=== PATIENT | female | born 1985 | race Caucasian/White ===

== ENCOUNTER 2016-11-03 10:41 | Observation (INO) | payer OTHER ==
[~2016-11-03] VITALS: Ht 160 cm; Wt 62.2 kg
[~2016-11-03 10:41] MED LIST: ACID REDUCER10 MG PO; ACYCLOVIR400 MG PO; ACYCLOVIR800 MG PO; ADDERALL XR 3030 MG PO; ADDERALL20 MG PO; ADDERALL30 MG PO; AZITHROMYCIN500 M1 PO; Acyclovir PO; CITALOPRAM HBR20 MG PO; CLINDAMYCIN HC300 MG PO; ENDOCET 5-3251 EACH PO; IBUPROFEN800 MG PO; JOLIVETTE0.35 MG PO; METRONIDAZOLE500 MG PO; MOTRIN600 MG PO; MOTRIN800 MG PO; Motrin PO; NATALCARE RX1 TABLET PO; NORCO 5/3251 TABLET PO; PERCOCET 5/31 TABLET PO; PREFERA-OB P1 TABLET PO; PRENATAL TABLE1 EAC3 PO; Percocet 5/325,Endoc PO; Procardia PO; VALIUM10 MG PO; VALIUM5 MG PO; XANAX1 MG PO; ZANTAC PO; ZITHROMAX Z-PA250 MG PO; ZOFRAN4 MG PO; Zantac PO; Zantac,Taladine PO
[2016-11-03 11:47] LABS: EOSINOPHIL (%) 0.9 % (0-5); EOSINOPHIL COUNT 0.1 K/uL (0-0.3); HEMATOCRIT 30.4 % (36.0-46.0); IMMATURE GRANULOCYTE (%) 0.3 % (0.0-0.7); INSTRUMENT ABS NEUTROPHIL CT 6.7 K/uL; LYMPHOCYTE COUNT 1.4 K/uL (1.0-2.8); MCH 29.9 PG (29.0-34.0); MCHC 34.5 G/DL (30.0-36.0); MCV 86.6 FL (83-99); MEAN PLAT.VOLUME 10.7 uM^3 (9.5-12.4); MONOCYTE (%) 5.2 % (3-12); MONOCYTE COUNT 0.5 K/uL (0-0.8); NEUTROPHIL (%) 77.4 % (45-76); NEUTROPHIL COUNT 6.7 K/uL (1.8-6.4); PLATELET COUNT 221 K/uL (156-360); RBC DIS.WIDTH-CV 12.4 % (11.8-14.6); RBC DIS.WIDTH-SD 38.9 % (39-53); RED BLOOD COUNT 3.51 M/uL (3.80-5.20); WHITE BLOOD COUNT 8.6 K/uL (4.1-10.2)
[2016-11-03 11:54] LABS: CHLORIDE 104 mEq/L (99-109); POTASSIUM 3.9 mEq/L (3.7-5.4); SODIUM 135 mEq/L (136-147)
[2016-11-03 11:56] LABS: GLUCOSE 94 mg/dL (70-99); INTER. NORMALIZED RATIO 1.1; PROTHROMBIN TIME 11.2 (9.2-11.2); PTT 22.6 (25-32)
[2016-11-03 11:57] LABS: ANION GAP 8 MEQ/L (2-14)
[2016-11-03 11:58] LABS: TOTAL BILIRUBIN 0.5 mg/dL (0.0-1.0)
[2016-11-03 12:00] LABS: ALKALINE PHOSPHATASE 34 IU/L (3-129); GFR ESTIMATE (CALCULATED) > 59 mL/min/
[2016-11-03 12:01] LABS: UREA NITROGEN (BUN) 7 mg/dL (9-23)
[2016-11-03 12:27] LABS: QUANTITATIVE HCG 29510.2 MIU/ML
[2016-11-03 14:26] LABS: HEMATOCRIT 25.3 % (36.0-46.0); MCV 87.2 FL (83-99)
[2016-11-03] MEDS ORDERED: CIPROFLOXACIN250 MG PO (15:08)
[2016-11-03] MEDS ORDERED: ADDERALL XR 3030 MG PO (15:10)
[2016-11-03] MEDS ORDERED: XANAX1 MG PO (15:10)
[2016-11-03] MEDS ORDERED: ACYCLOVIR800 MG PO (15:11)
[2016-11-03 17:57] LABS: EOSINOPHIL (%) 1.4 % (0-5); EOSINOPHIL COUNT 0.1 K/uL (0-0.3); IMMATURE GRANULOCYTE (%) 0.4 % (0.0-0.7); INSTRUMENT ABS NEUTROPHIL CT 2.8 K/uL; LYMPHOCYTE COUNT 1.7 K/uL (1.0-2.8); MCHC 33.9 G/DL (30.0-36.0); MCV 88.5 FL (83-99); MEAN PLAT.VOLUME 9.9 uM^3 (9.5-12.4); MONOCYTE (%) 7.6 % (3-12); MONOCYTE COUNT 0.4 K/uL (0-0.8); NEUTROPHIL (%) 56.2 % (45-76); NEUTROPHIL COUNT 2.8 K/uL (1.8-6.4); PLATELET COUNT 159 K/uL (156-360); RBC DIS.WIDTH-CV 12.6 % (11.8-14.6); RBC DIS.WIDTH-SD 40.2 % (39-53)
[2016-11-03 17:58] LABS: WHITE BLOOD COUNT 4.9 K/uL (4.1-10.2)
[2016-11-03 18:00] VITALS: BP 85/51
[2016-11-03 18:04] LABS: CHLORIDE 112 mEq/L (99-109); POTASSIUM 3.7 mEq/L (3.7-5.4); SODIUM 139 mEq/L (136-147)
[2016-11-03 18:06] LABS: GLUCOSE 107 mg/dL (70-99)
[2016-11-03 18:07] LABS: ANION GAP 4 MEQ/L (2-14)
[2016-11-03 18:09] LABS: GFR ESTIMATE (CALCULATED) > 59 mL/min/
[2016-11-03 18:10] LABS: UREA NITROGEN (BUN) 7 mg/dL (9-23)
[2016-11-03 18:23] VITALS: BP 85/15
[2016-11-03 20:20] VITALS: BP 102/58
[2016-11-03 20:54] LABS: HEMATOCRIT 23.1 % (36.0-46.0); MCV 89.9 FL (83-99)
[2016-11-04 00:53] VITALS: BP 98/51
[2016-11-04 03:02] VITALS: BP 98/47
[2016-11-04 07:32] LABS: HEMATOCRIT 22.1 % (36.0-46.0); MCV 89.8 FL (83-99)
[2016-11-04 08:02] VITALS: BP 95/52
[2016-11-04] MEDS ORDERED: MOTRIN600 MG PO (08:47)
[2016-11-04] MEDS ORDERED: ALPRAZOLAM0.5 MG PO (08:47)
[2016-11-04 11:26] VITALS: BP 101/62
== END 2016-11-04 11:46 | disposition home or self-care (01) ==
LOC: EME → EDBD 10:41 → EDOF 15:09 → 2EAST 15:09 → EDOF 15:09 → 2EAST 18:09
PROVIDERS: Emergency Medicine; Obstetrics & Gynecology
DX: O04.6 Delayed or excessive hemorrhage following (induced) termination of pregnancy (principal); D62 Acute posthemorrhagic anemia; I95.9 Hypotension, unspecified; Z3A.08 8 weeks gestation of pregnancy
CPT/HCPCS: 76856; 80048 91; 80053; 81003; 84702; 85014; 85018; 85025; 85025 91; 85610; 85730; 86850; 86900; 86901; 86920; 99281; 99285; G0378; J3010; J7030; J7120

== ENCOUNTER 2017-03-04 21:21 | Emergency (ER) | payer OTHER ==
[~2017-03-04] VITALS: Ht 160 cm; Wt 57.6 kg
[~2017-03-04 21:21] MED LIST changes: +ALPRAZOLAM0.5 MG PO; +CIPROFLOXACIN250 MG PO
[2017-03-04] MEDS ORDERED: BACTROBAN CREAM15 GM TP (22:29)
[2017-03-04] MEDS ORDERED: CLEOCIN300 MG PO (22:29)
[2017-03-04 22:52] VITALS: BP 135/77
== END 2017-03-04 22:52 | disposition home or self-care (01) ==
LOC: EME 21:21
DX: L02.415 Cutaneous abscess of right lower limb (principal); L30.9 Dermatitis, unspecified; F17.200 Nicotine dependence, unspecified, uncomplicated
CPT/HCPCS: 99281; 99283

== ENCOUNTER 2017-05-13 09:12 | Emergency (ER) | payer OTHER ==
[~2017-05-13] VITALS: Ht 160 cm; Wt 59.5 kg
[~2017-05-13 09:12] MED LIST changes: +BACTROBAN CREAM15 GM TP; +CLEOCIN300 MG PO
[2017-05-13 09:42] LABS: HEMATOCRIT 33.6 % (36.0-46.0); MCH 30.6 PG (29.0-34.0); MCHC 33.9 G/DL (30.0-36.0); MCV 90.1 FL (83-99); MEAN PLAT.VOLUME 10.7 uM^3 (9.5-12.4); PLATELET COUNT 194 K/uL (156-360); RBC DIS.WIDTH-CV 13.6 % (11.8-14.6); RBC DIS.WIDTH-SD 44.9 % (39-53); RED BLOOD COUNT 3.73 M/uL (3.80-5.20); WHITE BLOOD COUNT 6.4 K/uL (4.1-10.2)
[2017-05-13 09:53] LABS: CHLORIDE 105 mEq/L (99-109); POTASSIUM 3.8 mEq/L (3.7-5.4); SODIUM 136 mEq/L (136-147)
[2017-05-13 09:54] LABS: GLUCOSE 78 mg/dL (70-99)
[2017-05-13 09:56] LABS: ANION GAP 4 MEQ/L (2-14)
[2017-05-13 09:58] LABS: GFR ESTIMATE (CALCULATED) > 59 mL/min/
[2017-05-13 09:59] LABS: UREA NITROGEN (BUN) 5 mg/dL (9-23)
[2017-05-13 10:06] LABS: ADD MIUA? NO; BILIRUBIN NEGATIVE; BLOOD NEGATIVE; COLOR YELLOW ((YELLOW)); GLUCOSE (STRIP) NEGATIVE; KETONES NEGATIVE; LEUKOCYTES NEGATIVE; NITRITE NEGATIVE; PROTEIN (STRIP) NEGATIVE; SPECIFIC GRAVITY 1.006 (1.000-1.030); UROBILINOGEN 0.2 MG/DL (0.2-1.0)
[2017-05-13] MEDS ORDERED: TYLENOL WITH C1 EACH PO (10:57)
[2017-05-13 12:47] VITALS: BP 102/54
== END 2017-05-13 12:48 | disposition home or self-care (01) ==
LOC: EME 09:12
DX: O26.892 Other specified pregnancy related conditions, second trimester (principal); M54.6 Pain in thoracic spine; M54.5 Low back pain; R51 Headache; M54.2 Cervicalgia; Z72.0 Tobacco use; Z3A.15 15 weeks gestation of pregnancy
CPT/HCPCS: 76805; 80048; 81003; 85027; 99281; 99283

== ENCOUNTER 2017-07-17 19:37 | Outpatient (CLI) | payer OTHER ==
[~2017-07-17] VITALS: Ht 160 cm; Wt 60.1 kg
[~2017-07-17 19:37] MED LIST changes: +TYLENOL WITH C1 EACH PO
[2017-07-17] MEDS ORDERED: DIAZEPAM10 MG PO (21:41)
[2017-07-17 22:34] LABS: ADD MIUA? YES; BILIRUBIN NEGATIVE; BLOOD NEGATIVE; COLOR AMBER ((YELLOW)); GLUCOSE (STRIP) NEGATIVE; KETONES 5; LEUKOCYTES LARGE; NITRITE NEGATIVE; PROTEIN (STRIP) 30
[2017-07-17 22:41] LABS: EOSINOPHIL (%) 1.9 % (0-5); EOSINOPHIL COUNT 0.2 K/uL (0-0.3); HEMATOCRIT 30.9 % (36.0-46.0); IMMATURE GRANULOCYTE (%) 0.4 % (0.0-0.7); INSTRUMENT ABS NEUTROPHIL CT 5.1 K/uL; LYMPHOCYTE COUNT 2.2 K/uL (1.0-2.8); MCH 31.5 PG (29.0-34.0); MCV 90.1 FL (83-99); MEAN PLAT.VOLUME 10.8 uM^3 (9.5-12.4); MONOCYTE (%) 6.9 % (3-12); MONOCYTE COUNT 0.6 K/uL (0-0.8); NEUTROPHIL (%) 63.7 % (45-76); NEUTROPHIL COUNT 5.1 K/uL (1.8-6.4); PLATELET COUNT 165 K/uL (156-360); RBC DIS.WIDTH-CV 12.9 % (11.8-14.6); RBC DIS.WIDTH-SD 42.5 % (39-53); RED BLOOD COUNT 3.43 M/uL (3.80-5.20)
[2017-07-17 22:51] LABS: CHLORIDE 106 mEq/L (99-109); POTASSIUM 3.9 mEq/L (3.7-5.4); SODIUM 138 mEq/L (136-147)
[2017-07-17 22:53] LABS: GLUCOSE 99 mg/dL (70-99)
[2017-07-17 22:54] LABS: ANION GAP 8 MEQ/L (2-14)
[2017-07-17 22:57] LABS: GFR ESTIMATE (CALCULATED) > 59 mL/min/; UREA NITROGEN (BUN) 9 mg/dL (9-23)
[2017-07-17 23:06] LABS: RED BLOOD CELLS 0-5 /HPF (0-5)
[2017-07-17 23:07] LABS: BACTERIA 3+ /HPF; EPITHELIAL CELLS 2+ /HPF; MUCUS 2+ /LPF; UCUL ADDED? YES; WHITE BLOOD CELLS 20-30 /HPF (0-5)
[2017-07-18 00:50] VITALS: BP 108/59
[2017-07-18] MEDS ORDERED: ZANTAC150 MG PO (01:14)
[2017-07-18 02:10] VITALS: BP 129/67
[2017-07-18 03:33] VITALS: BP 95/50
[2017-07-18 04:15] VITALS: BP 110/55
[2017-07-18 06:46] LABS: AMPHETAMINE NEGATIVE (500 ng/mL); BARBITURATES NEGATIVE (200 ng/mL); BENZODIAZEPINES PRESUMPTIVE POSITIVE (150 ng/mL); COCAINE NEGATIVE (150 ng/mL); INTERNAL CONTROLS VALID? YES; METHADONE NEGATIVE (200 ng/mL); METHAMPHETAMINE NEGATIVE (500 ng/mL); OPIATES (MORPHINE) NEGATIVE (100 ng/mL); OXYCODONE PRESUMPTIVE POSITIVE (100 ng/mL); PHENCYCLIDINE NEGATIVE (25 ng/mL); PROPOXYPHENE NEGATIVE (300 ng/mL); THC CANNABINOIDS NEGATIVE (50 ng/mL); TRICYCLIC ANTIDEPRESSANTS NEGATIVE (300 ng/mL)
[2017-07-18 06:47] LABS: ADD MEDTOX COMMENT Y
[2017-07-18 07:27] LABS: BENZODIAZEPINES QUANT VALUE 0 NG/ML; BENZODIAZEPINES, URINE SCREEN Negative (200 ng/mL)
[2017-07-18 08:15] VITALS: BP 101/51
[2017-07-18] MEDS ORDERED: PNV PRENATAL P1 EACH PO (11:31)
[2017-07-18] MEDS ORDERED: VITAMIN B-6100 MG PO (11:33)
[2017-07-18] MEDS ORDERED: ZOVIRAX400 MG PO (11:33)
[2017-07-18] MEDS ORDERED: PERCOCET 5/31 TABLET PO (13:47)
== END 2017-07-18 14:10 | disposition home or self-care (01) ==
LOC: LDRP-OP 19:37 → EME 19:37 → 2WEST 07-18 00:47
PROVIDERS: Midwife; Physician Assistant
DX: O9A.312 Physical abuse complicating pregnancy, second trimester (principal); S19.9XXA Unspecified injury of neck, initial encounter; R10.2 Pelvic and perineal pain; M54.5 Low back pain; Z3A.25 25 weeks gestation of pregnancy; Y07.03 Male partner, perpetrator of maltreatment and neglect; Y04.8XXA Assault by other bodily force, initial encounter
CPT/HCPCS: 59025; 70498; 76810; 80048; 81003; 84999; 85025; 86850; 86900; 86901; 87086; 99281; 99284; G0378; J7120

== ENCOUNTER 2017-08-16 03:44 | Emergency (ER) | payer OTHER ==
[~2017-08-16] VITALS: Ht 160 cm; Wt 65.1 kg
[~2017-08-16 03:44] MED LIST changes: +DIAZEPAM10 MG PO; +PNV PRENATAL P1 EACH PO; +VITAMIN B-6100 MG PO; +ZANTAC150 MG PO; +ZOVIRAX400 MG PO
[2017-08-16 04:36] LABS: APPEARANCE SL.HAZY ((CLEAR)); BILIRUBIN NEGATIVE; BLOOD NEGATIVE; COLOR YELLOW ((YELLOW)); GLUCOSE (STRIP) NEGATIVE; KETONES NEGATIVE; LEUKOCYTES LARGE; NITRITE NEGATIVE; PROTEIN (STRIP) NEGATIVE; SPECIFIC GRAVITY 1.008 (1.000-1.030); UROBILINOGEN 0.2 MG/DL (0.2-1.0)
[2017-08-16 04:40] LABS: BACTERIA RARE /HPF; EPITHELIAL CELLS 1+ /HPF; MUCUS 1+ /LPF; UCUL ADDED? YES; WHITE BLOOD CELLS TNTC /HPF (0-5)
[2017-08-16] MEDS ORDERED: MACROBID100 MG PO (04:48)
[2017-08-16] MEDS ORDERED: PYRIDIUM100 MG PO (04:48)
[2017-08-16 04:59] VITALS: BP 112/70
== END 2017-08-16 05:00 | disposition home or self-care (01) ==
LOC: EXP 03:44 → EME 03:44 → EXP 05:00
DX: O23.13 Infections of bladder in pregnancy, third trimester (principal); O99.333 Smoking (tobacco) complicating pregnancy, third trimester; O99.513 Diseases of the respiratory system complicating pregnancy, third trimester; R05 Cough
CPT/HCPCS: 81003; 87077; 87086; 87186; 99281; 99283

== ENCOUNTER 2017-09-20 11:12 | Outpatient (CLI) | payer OTHER ==
[~2017-09-20] VITALS: Ht 160 cm; Wt 67.7 kg
[~2017-09-20 11:12] MED LIST changes: +MACROBID100 MG PO; +PYRIDIUM100 MG PO
[2017-09-20 11:13] VITALS: BP 130/77
[2017-09-20 11:34] VITALS: BP 122/72
[2017-09-20 12:17] VITALS: BP 101/63
[2017-09-20 12:17] LABS: APPEARANCE CLEAR ((CLEAR)); BILIRUBIN NEGATIVE; BLOOD NEGATIVE; COLOR STRAW ((YELLOW)); GLUCOSE (STRIP) NEGATIVE; KETONES 5; LEUKOCYTES NEGATIVE; NITRITE NEGATIVE; PROTEIN (STRIP) NEGATIVE; SPECIFIC GRAVITY 1.003 (1.000-1.030); UCUL ADDED? NO; UROBILINOGEN 0.2 MG/DL (0.2-1.0)
[2017-09-20 12:36] VITALS: BP 105/67
[2017-09-20] MEDS ORDERED: VALIUM10 MG PO (12:40)
[2017-09-20 12:51] VITALS: BP 107/64
[2017-09-20 12:53] LABS: AMPHETAMINE NEGATIVE (500 ng/mL); BARBITURATES NEGATIVE (200 ng/mL); BENZODIAZEPINES NEGATIVE (150 ng/mL); BUPRENORPHINE NEGATIVE (10 ng/mL); COCAINE NEGATIVE (150 ng/mL); METHADONE NEGATIVE (200 ng/mL); METHAMPHETAMINE NEGATIVE (500 ng/mL); OPIATES (MORPHINE) NEGATIVE (100 ng/mL); OXYCODONE NEGATIVE (100 ng/mL); PHENCYCLIDINE NEGATIVE (25 ng/mL); PROPOXYPHENE NEGATIVE (300 ng/mL); THC CANNABINOIDS NEGATIVE (50 ng/mL); TRICYCLIC ANTIDEPRESSANTS NEGATIVE (300 ng/mL)
== END 2017-09-20 14:50 | disposition home or self-care (01) ==
LOC: LDRP-OP → 2WEST 11:13 → LDRP-OP 12-01 14:22
PROVIDERS: Advanced Practice Midwife
DX: O28.8 Other abnormal findings on antenatal screening of mother (principal); O47.03 False labor before 37 completed weeks of gestation, third trimester; Z3A.34 34 weeks gestation of pregnancy; Z87.891 Personal history of nicotine dependence; O99.343 Other mental disorders complicating pregnancy, third trimester; F41.9 Anxiety disorder, unspecified; F32.9 Major depressive disorder, single episode, unspecified; O34.219 Maternal care for unspecified type scar from previous cesarean delivery; O99.713 Diseases of the skin and subcutaneous tissue complicating pregnancy, third trimester; L30.9 Dermatitis, unspecified
CPT/HCPCS: 59025; 81003; G0378; J7120

== ENCOUNTER 2017-10-14 13:35 | Outpatient (CLI) | payer OTHER ==
[2017-10-14 13:57] VITALS: BP 112/70
[2017-10-14] MEDS ORDERED: ADDERALL30 MG PO (14:16)
[2017-10-14 19:10] VITALS: BP 126/66
== END 2017-10-14 19:35 | disposition home or self-care (01) ==
LOC: LDRP-OP 13:35 → 2WEST 13:36 → LDRP-OP 12-01 15:13
DX: O47.03 False labor before 37 completed weeks of gestation, third trimester (principal); Z3A.35 35 weeks gestation of pregnancy
CPT/HCPCS: 59025; G0378

== ENCOUNTER 2017-10-25 07:40 | Inpatient (IN) | payer OTHER ==
[2017-10-24 09:39] LABS: BASOPHIL (%) 0.1 % (0-1); EOSINOPHIL (%) 0.5 % (0-5); HEMATOCRIT 34.4 % (36.0-46.0); HEMOGLOBIN 11.8 G/DL (11.9-15.5); IMMATURE GRANULOCYTE (%) 0.5 % (0.0-0.7); LYMPHOCYTE COUNT 1.8 K/uL (1.0-2.8); MCH 30.3 PG (29.0-34.0); MCHC 34.3 G/DL (30.0-36.0); MCV 88.4 FL (83-99); MONOCYTE (%) 6.7 % (3-12); MONOCYTE COUNT 0.5 K/uL (0-0.8); NEUTROPHIL (%) 69.2 % (45-76); NEUTROPHIL COUNT 5.5 K/uL (1.8-6.4); PLATELET COUNT 159 K/uL (156-360); RBC DIS.WIDTH-CV 13.4 % (11.8-14.6); RBC DIS.WIDTH-SD 43.6 % (39-53); RED BLOOD COUNT 3.89 M/uL (3.80-5.20)
[~2017-10-25] VITALS: Ht 160 cm; Wt 71.2 kg
[2017-10-25 08:57] VITALS: BP 112/74
[2017-10-25 10:59] LABS: BENZODIAZEPINES, URINE SCREEN Negative (200 ng/mL)
[2017-10-25] MEDS ORDERED: DOCUSATE SODIU100 MG PO (11:38)
[2017-10-25] MEDS ORDERED: IBUPROFEN800 MG PO (11:38)
[2017-10-25] MEDS ORDERED: MIRENA1 EACH IY (11:38)
[2017-10-25] MEDS ORDERED: DIAZEPAM2 MG PO (11:38)
[2017-10-25] MEDS ORDERED: ENDOCET 5-3251 EACH PO (11:38)
[2017-10-25 12:35] VITALS: BP 105/75
[2017-10-25 13:30] VITALS: BP 124/70
[2017-10-25 14:23] VITALS: BP 117/71
[2017-10-25 16:13] VITALS: BP 121/68
[2017-10-26 07:00] LABS: BASOPHIL (%) 0.1 % (0-1); EOSINOPHIL (%) 0.6 % (0-5); EOSINOPHIL COUNT 0.1 K/uL (0-0.3); HEMATOCRIT 30.9 % (36.0-46.0); HEMOGLOBIN 10.5 G/DL (11.9-15.5); IMMATURE GRANULOCYTE (%) 0.5 % (0.0-0.7); LYMPHOCYTE (%) 22.7 % (15-42); LYMPHOCYTE COUNT 2.2 K/uL (1.0-2.8); MCH 30.8 PG (29.0-34.0); MCV 90.6 FL (83-99); MONOCYTE (%) 5.7 % (3-12); MONOCYTE COUNT 0.6 K/uL (0-0.8); NEUTROPHIL (%) 70.4 % (45-76); NEUTROPHIL COUNT 6.7 K/uL (1.8-6.4); PLATELET COUNT 127 K/uL (156-360); RBC DIS.WIDTH-CV 13.4 % (11.8-14.6); RED BLOOD COUNT 3.41 M/uL (3.80-5.20); WHITE BLOOD COUNT 9.6 K/uL (4.1-10.2)
[2017-10-26 07:19] VITALS: BP 109/64
[2017-10-26 11:34] VITALS: BP 125/63
[2017-10-26 12:11] VITALS: BP 123/72
[2017-10-26 14:57] VITALS: BP 113/71
[2017-10-26 19:00] VITALS: BP 118/64
[2017-10-26 23:00] VITALS: BP 119/63
[2017-10-27 03:04] VITALS: BP 119/73
[2017-10-27 22:52] VITALS: BP 115/58
[2017-10-28 08:31] VITALS: BP 105/61
[2017-10-28 15:09] VITALS: BP 126/74
== END 2017-10-28 20:20 | disposition home or self-care (01) | DRG 765 ==
LOC: 2WEST 07:40 → 2SOUTH 07:40 → 2WEST 07:45 → 2SOUTH 10:34 → 2WEST 10-28 20:20
PROVIDERS: Obstetrics & Gynecology
DX: O34.211 Maternal care for low transverse scar from previous cesarean delivery (principal); O99.824 Streptococcus B carrier state complicating childbirth; O98.32 Other infections with a predominantly sexual mode of transmission complicating childbirth; A60.00 Herpesviral infection of urogenital system, unspecified; Z3A.39 39 weeks gestation of pregnancy; Z37.0 Single live birth; O99.344 Other mental disorders complicating childbirth; F32.9 Major depressive disorder, single episode, unspecified; F41.0 Panic disorder [episodic paroxysmal anxiety]; F98.8 Other specified behavioral and emotional disorders with onset usually occurring in childhood and adolescence; Z81.8 Family history of other mental and behavioral disorders; Z91.410 Personal history of adult physical and sexual abuse; Z30.430 Encounter for insertion of intrauterine contraceptive device; Z87.891 Personal history of nicotine dependence
CPT/HCPCS: 36415; 80306 90; 82247; 82248; 82261 90; 82776 90; 84030 90; 84510 90; 85025; 86850; 86900; 86901; 86920; 87081; 87641; J0690; J1200; J1885; J2270; J2274; J2405; J3010; J7120

== ENCOUNTER 2017-11-30 21:09 | Observation (INO) | payer OTHER ==
[~2017-11-30] VITALS: Ht 160 cm; Wt 63.5 kg
[~2017-11-30 21:09] MED LIST changes: +DIAZEPAM2 MG PO; +DOCUSATE SODIU100 MG PO; +MIRENA1 EACH IY
[2017-11-30 23:26] LABS: APPEARANCE CLEAR ((CLEAR)); BILIRUBIN NEGATIVE; BLOOD NEGATIVE; COLOR STRAW ((YELLOW)); GLUCOSE (STRIP) NEGATIVE; KETONES NEGATIVE; LEUKOCYTES NEGATIVE; NITRITE NEGATIVE; PROTEIN (STRIP) NEGATIVE; SPECIFIC GRAVITY 1.005 (1.000-1.030); UROBILINOGEN 0.2 MG/DL (0.2-1.0)
[2017-11-30 23:30] LABS: BASOPHIL (%) 0.3 % (0-1); EOSINOPHIL (%) 1.6 % (0-5); EOSINOPHIL COUNT 0.1 K/uL (0-0.3); HEMATOCRIT 36.4 % (36.0-46.0); HEMOGLOBIN 12.4 G/DL (11.9-15.5); IMMATURE GRANULOCYTE (%) 0.1 % (0.0-0.7); LYMPHOCYTE (%) 36.1 % (15-42); LYMPHOCYTE COUNT 2.6 K/uL (1.0-2.8); MCH 29.2 PG (29.0-34.0); MCHC 34.1 G/DL (30.0-36.0); MCV 85.6 FL (83-99); MONOCYTE (%) 10.4 % (3-12); MONOCYTE COUNT 0.8 K/uL (0-0.8); NEUTROPHIL (%) 51.5 % (45-76); NEUTROPHIL COUNT 3.7 K/uL (1.8-6.4); PLATELET COUNT 201 K/uL (156-360); RBC DIS.WIDTH-CV 12.2 % (11.8-14.6); RBC DIS.WIDTH-SD 38.1 % (39-53); RED BLOOD COUNT 4.25 M/uL (3.80-5.20); WHITE BLOOD COUNT 7.3 K/uL (4.1-10.2)
[2017-11-30 23:46] LABS: ALBUMIN 4.1 g/dL (3.2-4.8)
[2017-11-30 23:47] LABS: CHLORIDE 103 mEq/L (99-109); POTASSIUM 4.3 mEq/L (3.7-5.4); SODIUM 137 mEq/L (136-147)
[2017-11-30 23:49] LABS: GLUCOSE 79 mg/dL (70-99); TOTAL PROTEIN 6.7 g/dL (6.4-8.3)
[2017-11-30 23:51] LABS: TOTAL BILIRUBIN 0.7 mg/dL (0.0-1.0)
[2017-11-30 23:52] LABS: ALKALINE PHOSPHATASE 84 IU/L (3-129)
[2017-11-30 23:53] LABS: CREATININE 0.8 mg/dL (0.6-1.3); GFR ESTIMATE (CALCULATED) > 59 mL/min/
[2017-11-30 23:54] LABS: AST (GOT) 24 IU/L (2-34); DIRECT BILIRUBIN 0.3 mg/dL (0.0-0.3); UREA NITROGEN (BUN) 11 mg/dL (9-23)
[2017-11-30 23:56] LABS: ALT (GPT) 37 IU/L (3-49)
[2017-11-30] MEDS ORDERED: ADDERALL XR 3030 MG PO (23:56)
[2017-11-30] MEDS ORDERED: VALIUM10 MG PO (23:56)
[2017-11-30] MEDS ORDERED: TYLENOL EXTRA500 MG PO (23:57)
[2017-12-01 02:30] VITALS: BP 98/51
[2017-12-01 07:43] VITALS: BP 95/53
[2017-12-01 11:24] VITALS: BP 92/45
[2017-12-01 15:07] VITALS: BP 103/46
[2017-12-01] MEDS ORDERED: CLINDAMYCIN HC300 MG PO (17:20)
[2017-12-01 20:08] VITALS: BP 121/54
[2017-12-01 23:44] VITALS: BP 109/55
[2017-12-02 04:30] VITALS: BP 115/60
[2017-12-02 06:56] LABS: HEMATOCRIT 35.2 % (36.0-46.0); HEMOGLOBIN 11.9 G/DL (11.9-15.5); MCH 29.4 PG (29.0-34.0); MCHC 33.8 G/DL (30.0-36.0); MCV 86.9 FL (83-99); PLATELET COUNT 173 K/uL (156-360); RBC DIS.WIDTH-CV 12.1 % (11.8-14.6); RBC DIS.WIDTH-SD 38.6 % (39-53); RED BLOOD COUNT 4.05 M/uL (3.80-5.20); WHITE BLOOD COUNT 4.5 K/uL (4.1-10.2)
[2017-12-02 07:38] VITALS: BP 82/44
[2017-12-02 11:00] VITALS: BP 116/56
== END 2017-12-02 12:45 | disposition home or self-care (01) ==
LOC: EME 21:09 → EDOF 12-01 00:55 → ENRESERV 12-01 01:24 → 2EAST 12-01 02:28
PROVIDERS: Obstetrics & Gynecology Gynecology; Physician Assistant
DX: O86.0 Infection of obstetric surgical wound (principal)
CPT/HCPCS: 74177; 80048; 80076; 81003; 83605; 85025; 85027; 87040; 87070; 87075; 87205; 99281; 99285; G0378; J1885; J2543; J3010; J3370; J7030; J7050